=== PATIENT | female | born 1945 | race Caucasian/White ===

== ENCOUNTER 2016-10-24 07:23 | Emergency (ER) | payer OTHER ==
[2016-10-24 07:47] VITALS: RESP 18; TEMP 97.9; O2SAT 96
[2016-10-24] MEDS ORDERED: ONDANSETRON 4 MG/2 ML VIAL IVP ONE (07:47)
[2016-10-24] MEDS ORDERED: NS 1,000 ML IV ONE (07:47)
[2016-10-24] MEDS ORDERED: MECLIZINE HCL 25 MG TAB PO ONE (07:55)
[2016-10-24] MEDS ORDERED: ONDANSETRON DISINTEGRATING 4 MG TAB PO ONE (07:55)
--- NOTE | 2016-10-24 07:59 | UCPHY ---
H & P Time Seen by Provider: 10/24/16 07:31 Patient Type: Established HPI/ROS: Patient describes onset of vertigo after blowing her nose on Sunday morning. She explains that she stood up after blowing her nose and then felt like she was spinning. This symptoms yesterday were mild intermittent. She noticed mild vertigo symptoms with head movement. This morning she awakened with more severe symptoms describing difficulty walking like a drunken machinist bench she vomited 3 or 4 times due to the severity of the vertigo. When she rests and hold still the symptoms gradually resolved. She has mild coryza over the past week and no other associated symptoms. She has never had vertigo before ROS: No fevers or chills. No other constitutional symptoms. HEENT: No or sore throat. She denies any ear pain. No drainage from the ear. No change in her hearing. No tinnitus. Neuro: No headache. No visual changes. No numbness tingling or focal weakness. Pulmonary: No symptoms cardiovascular: No heart palpitations, chest pain or lightheadedness. GI: No abdominal pain. Mild nausea a turns to vomiting with head movement. 10 point ROS is otherwise negative. Past Medical/Surgical History: Otherwise healthy. Smoking Status: Former smoker Physical Exam: Physical exam: Vital signs are normal General: Patient is in no acute distress. HEENT: Is no external evidence of trauma on exam. Eyes: Pupils are equal and reactive to light. Extraocular motions are intact. Optic fundi: Clear with no papilledema or hemorrhage. Nose atraumatic. Ears: Clear bilaterally with no hemotympanum. Oropharynx: No dental trauma or malocclusion. No intraoral lacerations. Neck: Trachea is midline with no stridor. The patient has no midline neck tenderness and retains a full range of motion without increase in pain. Lungs: Clear to auscultation bilaterally Cardiac: Regular rate and rhythm no murmur gallop or rub. Chest: Nontender. Abdomen: Soft nontender no organomegaly Back: Nontender Extremities: Atraumatic Neuro: GCS of 15. Cranial nerves II through XII intact. Cerebellar exam is normal as judged by symmetric rapid hand movements bilaterally. She does have vertigo with head movement No pronator drift. No sensory or motor deficits are appreciated. Initial differential diagnosis: Meniere's disease, benign positional vertigo, no clinical evidence of central vertigo. Constitutional: Initial Vital Signs Temperature (C) 36.6 C 10/24/16 07:44 Heart Rate 63 10/24/16 07:44 Respiratory Rate 18 10/24/16 07:44 Blood Pressure 176/99 H 10/24/16 07:44 O2 Sat (%) 96 10/24/16 07:44 O2 Delivery Mode Room Air Allergies/Adverse Reactions: codeine Allergy (Intermediate, Verified 10/24/16 07:43) Vomiting Interferons Allergy (Unknown, Verified 10/24/16 07:43) Unknown Home Medications: Medication Instructions Recorded Adderall 10 MG (*) 08/20/16 Wellbutrin Sr 08/20/16 Meclizine HCl [Meclizine HCl 25 mg 25 mg PO TID PRN #20 tab 10/24/16 (RX,OTC)] Ondansetron Odt [Zofran Odt] 4 - 8 mg PO Q4PRN PRN #4 tab 10/24/16 MDM/Departure - MDM Medications Given: Discontinued Medications Sodium Chloride (Ns) 1,000 mls @ 0 mls/hr IV ONCE ONE PRN Reason: Wide Open Stop: 10/24/16 07:48 Last Admin: 10/24/16 08:23 Dose: Not Given Meclizine HCl (Meclizine Hcl) 25 mg PO EDNOW ONE Stop: 10/24/16 07:56 Last Admin: 10/24/16 08:05 Dose: 25 mg Ondansetron HCl (Zofran) 4 mg IVP EDNOW ONE Stop: 10/24/16 07:48 Last Admin: 10/24/16 08:23 Dose: Not Given Ondansetron HCl (Zofran Odt) 8 mg PO EDNOW ONE Stop: 10/24/16 07:56 Last Admin: 10/24/16 08:00 Dose: 8 mg ED Course/Re-evaluation: Zofran ODT and meclizine with marked improvement in her symptoms. She tolerated p.o. intake without emesis was able ambulate without difficulty I counseled patient regarding benign positional vertigo. No clinical evidence for central vertigo or other concerning findings. - Depart Disposition: Home, Routine, Self-Care Clinical Impression: Benign positional vertigo Qualifiers: Laterality: unspecified laterality Qualified Code(s): H81.10 - Benign paroxysmal vertigo, unspecified ear Vomiting Qualifiers: Vomiting type: unspecified Vomiting Intractability: non-intractable Nausea presence: with nausea Qualified Code(s): R11.2 - Nausea with vomiting, unspecified Condition: Good Instructions: Acute Nausea and Vomiting (ED), Benign Paroxysmal Positional Vertigo (ED) Additional Instructions: Diagnoses: 1. Benign positional vertigo 2. Vomiting Plan: Zofran for nausea as needed Meclizine for vertigo as needed Continue Flonase steroid nasal spray Your symptoms should improve over the next few days. If you're not improving, call Dr. Antonio lechuga-Ear Nose Throat specialist arrange follow-up for further evaluation. Go to the emergency department for any significant worsening despite the treatment plan. Prescriptions: Meclizine HCl [Meclizine HCl 25 mg (RX,OTC)] 25 mg PO TID PRN #20 tab PRN Reason: vertigo Ondansetron Odt [Zofran Odt] 4 - 8 mg PO Q4PRN PRN #4 tab PRN Reason: Vomiting Referrals: Brandon Arciniega MD [Primary Care Provider] - As per Instructions Antonio Dia MD [Medical Doctor] - As per Instructions - PQRS PQRS Measurement: 134: Depression screening and followup, PRIME MD-PHQ2 (12 years and older) Over the last 2 weeks, how often have you been bothered by any of the following problems? 1. Feeling down, depressed, or hopeless? 2. Little interest or pleasure in doing things? Patient answered no to both 1 and 2 130: Documentation of medications. Reviewed all patient medications, doses, route and frequency. 226: Do you smoke? [No.] 47: 65 and older: Advanced care planning. Patient designates surrogate decision maker as her son 51: 18 years old and older with diagnosis of COPD, spirometry performance. NA 52: 18 years old and older with COPD and symptoms of COPD or FEV1<60% predicted prescribed a B Agonist. EWDARD
[2016-10-24 09:20] VITALS: BP 128/81; PULSE 72
== END 2016-10-24 09:29 | disposition home or self-care (01) ==
LOC: CED 07:23
DX: H81.10 Benign paroxysmal vertigo, unspecified ear (principal); R11.2 Nausea with vomiting, unspecified; Z87.891 Personal history of nicotine dependence
CPT/HCPCS: 99214-PO; G0463-PO; J2405